=== PATIENT | female | born 1960 | race Caucasian/White ===

== ENCOUNTER 2017-04-05 20:07 | Emergency (ER) | payer OTHER ==
[~2017-04-05] VITALS: Ht 157.5 cm; Wt 66.2 kg
[~2017-04-05 20:07] MED LIST: ALEVE; B12INJ; CINNAMON; FISHOIL; IBUPROFEN 800800 M1 PO; MULTIVITAMINS PO; NORCO 5-325 TA1 EACH PO; NORFLEX100 MG PO; PERCOCET 5-3251 EACH PO; VITAMIN D400 UNI1
[2017-04-05] MEDS ORDERED: TRAMADOL 50 MG50 MG PO (21:29)
[2017-04-05 22:30] VITALS: BP 147/72
== END 2017-04-05 22:50 | disposition home or self-care (01) ==
LOC: ER 20:07
DX: S46.912A Strain of unspecified muscle, fascia and tendon at shoulder and upper arm level, left arm, initial encounter (principal); F17.210 Nicotine dependence, cigarettes, uncomplicated; Z88.0 Allergy status to penicillin; Z90.710 Acquired absence of both cervix and uterus; Z98.890 Other specified postprocedural states; W51.XXXA Accidental striking against or bumped into by another person, initial encounter; Y93.89 Activity, other specified; Y92.89 Other specified places as the place of occurrence of the external cause; Y99.0 Civilian activity done for income or pay